=== PATIENT | male | born 1955 | race Caucasian/White ===

== ENCOUNTER 2018-04-08 05:58 | Day surgery (SDC) | payer OTHER ==
[2018-04-07 11:45] VITALS: BP 141/76
[2018-04-07 12:03] LABS: BASOPHILS % (AUTO) 0.6 % (0.0-5.0); EOSINOPHILS % (AUTO) 4.3 % (0.0-8.0); HEMATOCRIT 38.9 % (42-54); LYMPHOCYTES % (AUTO) 32.3 % (21.0-51.0); MEAN CORPUSCULAR HEMOGLOBIN 28.1 pg (27.0-33.0); MEAN CORPUSCULAR HGB CONC 33.8 g/dL (32.0-36.0); MEAN CORPUSCULAR VOLUME 83.3 fL (79-99); MONOCYTES % (AUTO) 8.7 % (3.0-13.0); NEUTROPHILS % (AUTO) 54.1 % (40.0-77.0); PLATELET COUNT (AUTO) 233 K/uL (130-400); RED BLOOD CELL COUNT(AUTO) 4.67 MIL/uL (4.50-6.20); WHITE BLOOD COUNT (AUTO) 8.3 K/uL (4.8-10.8)
[2018-04-07 12:12] LABS: CREATININE 0.9 mg/dL (0.5-1.5)
[2018-04-07 12:21] LABS: INR 0.95 (0.85-1.15); PARTIAL THROMBOPLASTIN TIME 31.2 SEC (26.3-35.5)
[~2018-04-08] VITALS: Ht 185.4 cm; Wt 140.5 kg
[2018-04-08] VITALS (10 sets, daily range): BP systolic 100–145; BP diastolic 46–70
[~2018-04-08 05:58] MED LIST: AMLO5TAB7 PO; ASCO500T8 PO; ASPI-891 PO; CETI-101 PO; FIBER TABS PO; FLONASE NASAL; HYDR12.530 PO; KRILL OIL PO; LOSA100T20 PO; LOVASTATIN PO; METOPROLOL PO; MVIT PO; VITAMIN B12 SL
[2018-04-08] MEDS ORDERED: SODIUM CHLORIDE 0.9% 1000ML 1,000 ML IV ONE (06:20)
[2018-04-08] MEDS ORDERED: UBID100C45 PO (07:01)
[2018-04-08] MEDS ORDERED: METO-409 PO (07:01)
[2018-04-08] MEDS ORDERED: LIDOCAINE HCL 1% MDV 50ML VIAL ONE (07:08)
[2018-04-08] MEDS ORDERED: BUPIVACAINE/PF 0.25% 50ML VIAL IJ ONE (07:09)
[2018-04-08] MEDS ORDERED: MEPERIDINE-PF 25 MG/ML SYG ONE ×2 (07:27→07:51)
[2018-04-08] MEDS ORDERED: MIDAZOLAM HCL 1 MG/ML 2ML VIAL ONE ×4 (07:27→08:57)
[2018-04-08] MEDS ORDERED: CEFAZOLIN 3GM /D5W 100ML 100 ML IV PRN (08:00)
[2018-04-08] MEDS ORDERED: SODIUM CHLORIDE 0.9% 1000ML 1,000 ML IV SCH (08:00)
[2018-04-08] MEDS ORDERED: DOXY100C2 PO (08:28)
[2018-04-08] MEDS ORDERED: ACETAMINOPHEN 325 MG TAB PO PRN (08:30)
[2018-04-08] MEDS ORDERED: ACETAMINOPHEN-CODEINE 300/30MG TAB PO PRN (08:30)
[2018-04-08] MEDS ORDERED: LIDOCAINE HCL 2% VISCOUS 15 ML UDCUP ONE (08:56)
[2018-04-08] MEDS ORDERED: FENTANYL CITRATE PF 50 MCG/1 ML 2ML VIAL ONE (08:58)
== END 2018-04-08 12:30 | disposition home or self-care (01) ==
LOC: DAH 05:58
PROVIDERS: ATTEND Internal Medicine Cardiovascular Disease
DX: I34.0 Nonrheumatic mitral (valve) insufficiency (principal); I51.7 Cardiomegaly; I25.3 Aneurysm of heart; I10 Essential (primary) hypertension; E78.5 Hyperlipidemia, unspecified; F15.90 Other stimulant use, unspecified, uncomplicated; E66.9 Obesity, unspecified; Z68.41 Body mass index [BMI] 40.0-44.9, adult; Z79.2 Long term (current) use of antibiotics; Z79.82 Long term (current) use of aspirin; Z79.899 Other long term (current) drug therapy; Z87.891 Personal history of nicotine dependence; Z86.73 Personal history of transient ischemic attack (TIA), and cerebral infarction without residual deficits; Z83.3 Family history of diabetes mellitus; Z82.5 Family history of asthma and other chronic lower respiratory diseases; Z80.8 Family history of malignant neoplasm of other organs or systems; Z82.49 Family history of ischemic heart disease and other diseases of the circulatory system
CPT/HCPCS: 33282; 36415; 80048; 85025; 85610; 85730; 93005; 93312; 93325; A4606; C1764; J2175 ×2; J2250 ×4; J3010; J3490 ×2; J7030; 93313; 99156; 99157

== ENCOUNTER → 2020-01-04 | Outpatient (CLI) | payer MEDICARE | END | disposition home or self-care (01) | LOC: SHCH 08:30 | PROVIDERS: ATTEND Internal Medicine Cardiovascular Disease | DX: I67.89 Other cerebrovascular disease (principal) ==

== ENCOUNTER → 2024-01-07 | Outpatient (CLI) | payer MEDICARE ==
[~2024-01-07] MED LIST changes: +AMLO-257 PO; -AMLO5TAB7 PO; -ASCO500T8 PO; +ASCO500T92 PO; -CETI-101 PO; +CETI-89 PO; +DOXY100C5 PO; -LOSA100T20 PO; +LOSA100T59 PO; +METO-409 PO; -METOPROLOL PO; +UBID100C45 PO
[2024-01-07 12:19] LABS: CREATININE 0.7 mg/dL (0.5-1.3)
== END | disposition home or self-care (01) ==
LOC: LAB 08:32
PROVIDERS: ATTEND Internal Medicine Cardiovascular Disease
DX: I71.40 Abdominal aortic aneurysm, without rupture, unspecified (principal)
CPT/HCPCS: 36415; 82565; 84520

== ENCOUNTER → 2024-01-10 | Outpatient (CLI) | payer MEDICARE | END | disposition home or self-care (01) | LOC: RAH 12:39 | PROVIDERS: ATTEND Internal Medicine Cardiovascular Disease | DX: I25.10 Atherosclerotic heart disease of native coronary artery without angina pectoris (principal); M47.815 Spondylosis without myelopathy or radiculopathy, thoracolumbar region | CPT/HCPCS: 75574 ==

== ENCOUNTER → 2024-12-09 | Outpatient (CLI) | payer MEDICARE ==
--- NOTE | 2024-12-09 13:53 | HMCIMG ---
MR HIP RIGHT WO HISTORY: Pain COMPARISON: None TECHNIQUE: MRI of the right hip was performed utilizing multiple pulse sequences in axial, coronal and sagittal planes. Patient was not given contrast through intravenous route. FINDINGS: No MR evidence of avascular necrosis, stress fracture or dislocation is seen. There is no acute displaced fracture or dislocation. There appears to be tiny joint effusion of the right hip. IMPRESSION: 1. Tiny joint effusion. No evidence of fracture or dislocation is seen.
== END | disposition home or self-care (01) ==
LOC: RAH 10:21
PROVIDERS: ATTEND Internal Medicine Nephrology
DX: M25.451 Effusion, right hip (principal); M25.551 Pain in right hip
CPT/HCPCS: 73721